=== PATIENT | male | born 1965 | race Caucasian/White ===

== ENCOUNTER → 2016-08-08 | Outpatient (CLI) | payer OTHER ==
[~2016-08-08] MED LIST: ACETAMINOPHEN PO; FLEXERIL10 MG PO; LIPITOR PO; LORTAB 5/500 TA1 TA1 PO; SIMVASTATIN40 MG PO
--- NOTE | ~2016-08-08 | CT2 ---
[facility] A Service of [facility] RADIOLOGY TEXT RESULTS PATIENT: AMY OROZOC LOCATION: [facility] : 63 UNIT #: [id number] AGE: [address]: ROYAL PABON APRN SEX: M ORDER DR: [id number] [facility] [address] [place], [place] [address] [id number] O MR#: [id number] [facility] #: [id number] NAME: AMY OROZCO : 1965 SEX: M STUDY DATE/TIME: 08/08/2016 13:09 UNIT: [facility] ROOM: STUDY DESCRIPTION: CT Abd and Pelv W Cont Attending Physician: Royal Pabon Aprn Referring Physician: Royal Pabon Aprn Ordering Physician: Royal Pabon Aprn Primary Care Physician: Ara Jefferson M.D. MEDICAL IMAGING REPORT This report is preliminary unless electronic signature is present EXAM CT abdomen and pelvis with contrast INDICATIONS Right lower quadrant abdominal pain off and on for the past 2 years. TECHNIQUE Contrast-enhanced CT of the abdomen and pelvis 100 mL of Isovue-370. This CT exam was performed with one or more of the following radiation dose reduction techniques: automatic exposure control, adjustment of mA and/or kV according to patient size, and iterative reconstruction. COMPARISON 02/27/2015. FINDINGS ABDOMEN WITH CONTRAST: Included lung bases are clear. Approximately 11 mm focus of enhancement in segment 2 of the liver, not clearly seen on the prior. The spleen, kidneys, adrenal glands, pancreas, gallbladder unremarkable. Bowel loops non-dilated. 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 PELVIS WITH CONTRAST: No pelvic mass or fluid. No aggressive appearing bone lesion. IMPRESSION 1. No clearly acute findings. 2. 11 mm early enhancing focus in segment 2 of the liver, not seen on the prior. It is favored to represent a small underlying hemangioma or perfusional variant. It could be further evaluated with liver [facility] A Service of [facility] RADIOLOGY TEXT RESULTS PATIENT: AMY OROZCO LOCATION: [facility] #: [id number] : 63 UNIT #: [id number] AGE: [address]: ROYAL PABON APRN SEX: M ORDER DR: protocol CT or MRI. 3. Other incidental findings detailed above. Dictated by... Escobar Green M.D. THIS IS AN ELECTRONICALLY VERIFIED REPORT Escobar Green M.D. at 08/12/2016 7:10 AM EED/pcl TD: 08/08/2016 20:44 JOB #: [id number] MEDICAL IMAGING REPORT COPY
== END | disposition home or self-care (01) ==
LOC: CCAT 11:25
DX: R10.9 Unspecified abdominal pain (principal)
CPT/HCPCS: 74177; Q9967